=== PATIENT | female | born 1960 | race Hispanic/Latino ===

== ENCOUNTER 2018-01-31 10:42 | Day surgery (SDC) | payer MEDICAID ==
[2018-01-31] MEDS ORDERED: NACL BACTERIOSTATIC INFILTRATI ONE (11:49)
[2018-01-31] MEDS ORDERED: ZOFRAN ONE (11:50)
[2018-01-31] MEDS ORDERED: SUBLIMAZE ONE (12:17)
--- NOTE | 2018-01-31 12:26 | Anesthesia Consultation ---
Anesthesia Consult and Med Hx Date of service: 01/31/18 - Airway Anesthetic Teeth Evaluation: Edentulous ROM Head & Neck: Adequate Mental/Hyoid Distance: Adequate Mallampati Class: Class II Intubation Access Assessment: Probably Good - Pulmonary Exam CTA: Yes - Cardiac Exam Cardiac Exam: RRR - Pre-Operative Health Status ASA Pre-Surgery Classification: ASA3 Proposed Anesthetic Plan: General - Pulmonary Hx Smoking: Yes (STOPPED 2003 , 1 PPD X 30 YRS) COPD: Yes (RARE INHALER USE. (Combivent used every morning)) Hx Sleep Apnea: Yes (DX SLEEP APNEA , NO CPAP USE.) - Cardiovascular System Hx Hypertension: No Hx Heart Murmur: Yes (MVP) - Central Nervous System Hx Neuromuscular Disorder: Yes (rheumatoid arthritis) Hx Back Pain: Yes (BACK AND NECK PAIN) - Gastrointestinal Hx Gastroesophageal Reflux Disease: No (IBS) - Endocrine Hx Renal Disease: No (interstitial cystitis) - Hematic Hx Anemia: Yes (NOT RECENT) - Other Systems Hx Cancer: Yes (Hx of cervical cancer in past (2003))
--- NOTE | 2018-01-31 12:27 | Anesthesia Day of Surgery ---
Anesthesia Day of Surgery - Day of Surgery Patient Examined: Yes Patient H&P Reviewed: Yes Patient is NPO: Yes
[2018-01-31] MEDS ORDERED: ZOFRAN IV NR (12:30)
[2018-01-31] MEDS ORDERED: NACL 0.9% 1000 ML 1,000 ML IV SCH (12:30)
[2018-01-31] MEDS ORDERED: VERSED IV NR (12:32)
[2018-01-31] MEDS ORDERED: XYLOCAINE MPF 2% ONE (12:35)
[2018-01-31] MEDS ORDERED: DIPRIVAN 10 MG/ML IV ONE (12:35)
[2018-01-31] MEDS ORDERED: WATER FOR IRRIG STERILE IR ONE (15:00)
[2018-01-31] MEDS ORDERED: ANCEF/STERILE WATER 2 GM/20 ML IV NR (15:00)
--- NOTE | 2018-01-31 15:39 | Short Stay Summary ---
Short Stay Documentation Date of service: 01/31/18 - History H&P: obtained from office - Allergies and Medications Current Medications: Allergies codeine Allergy (Verified 01/23/18 16:24) Vomiting / RASH diazepam [From Valium] Allergy (Verified 01/23/18 16:25) LOW BP iodine Allergy (Verified 01/23/18 16:25) Hives PT STATES CAN TAKE IN SMALL AMOUNTS , BUT REPEATED DOSES CAUSES HIVES. morphine Allergy (Verified 01/23/18 16:24) Hives Home Medications Medication Instructions Recorded Confirmed Last Taken Type Abatacept [Orencia] 50 mg SQ QWEEK 01/23/18 01/31/18 1 Month Ago History ~12/31/17 AtorvaSTATin [Lipitor] 20 mg PO QHS 01/23/18 01/23/18 01/30/18 History Cholecalciferol (Vitamin D3) 50,000 unit PO QWEEK 01/23/18 01/31/18 1 Week Ago History [Vitamin D3] ~01/24/18 HYDROcodone/APAP 5-325 [Allison 1 each PO Q6HR PRN 01/23/18 01/23/18 01/30/18 History 5/325] Ipratropium/Albuter (Nf) 2 puff IH PRN PRN 01/23/18 01/23/18 01/30/18 History [Combivent (Nf)] Active Medications Cefazolin Sodium (Ancef/Sterile Water 2 Gm/20 Ml) 2 gm IV PREOP NR Stop: 01/31/18 23:59 Sodium Chloride (Nacl 0.9% 1000 Ml) 1,000 mls @ 100 mls/hr IV DIRECT YURI Stop: 01/31/18 23:59 Last Admin: 01/31/18 12:00 Dose: 100 mls/hr Midazolam HCl (Versed) 1 mg IV PREOP NR Stop: 01/31/18 23:00 Last Admin: 01/31/18 12:40 Dose: 1 mg - Brief post op/procedure progress note Date of procedure: 01/31/18 Pre-op diagnosis: right uret stenosis / hydroureter Post-op diagnosis: same Procedure: cysto, urs, rpg right stent change 6x24 Anesthesia: GETA Findings: right distal ureter mild narrow, no tumor Surgeon: UNRULY GONZALEZ Estimated blood loss: minimal Pathology: none Condition: stable - Hospital course Hospital course: or pacu home - Disposition Condition at discharge: Good Disposition: DC-01 TO HOME OR SELFCARE Short Stay Discharge Plan Activity: advance as tolerated Follow up with: UNRULY GONZALEZ MD [Staff Physician] - 7 Days
[2018-01-31 16:18] VITALS: BP 117/52
[2018-01-31] MEDS ORDERED: NORCO 7.5/325 PO ONE (17:23)
--- NOTE | 2018-02-01 08:07 | Fluoroscopy Report ---
FLUOROSCOPY RETROGRADE UROGRAPHY: HISTORY: Hydronephrosis. FINDINGS: Fluoroscopy was provided by radiology during retrograde urography by the urologist. 9 fluoroscopic images were captured. Lab Support Service Tech film demonstrates a right ureteral stent which appears in good position. Right ureteroscopy was performed per the operative note. No filling defects or stones were visible. The right ureteral stent was replaced which adequately drains the right renal collecting system on the final image. The left pyelogram was not performed IMPRESSION: Right ureteral stent replacement as described.
--- NOTE | 2018-03-15 21:24 | Operative Report ---
PREOPERATIVE DIAGNOSES: Right ureteral stenosis and hydroureter. POSTOPERATIVE DIAGNOSES: Right ureteral stenosis and hydroureter. PROCEDURE: Cystoscopy, ureteroscopy, RPG, right stent change. FINDINGS: Right distal ureter mildly narrow. No tumor. SURGEON: Pete Penaloza M.D. ESTIMATED BLOOD LOSS: Minimal. PATHOLOGY: None. CONDITION: Stable. CLINICAL INDICATIONS: The patient has a history of an abnormality on her CT for past evaluation, had been scheduled for a scope, unable to pass scope due to stricture, narrowed area, so a stent had been placed. She is here for staged look, antibiotics, SCDs. DESCRIPTION OF PROCEDURE: The patient transferred to the OR suite in supine position, anesthesia, dorsal lithotomy position, prepped and draped in standard fashion. A 20-Danish scope passed, the right distal J visualized. Wire passed adjacent to this to the right renal pelvis, stent grasped, pulled out intact. Rigid ureteroscope was then passed. We were able to easily pass through this mildly narrow. We were able to pass beyond the stricture or apparently narrowed area. On the CT scan and previous studies, there was no visualized erythema, no papillary areas. No tumors and nothing suspicious. The cystoscope was passed up to the proximal length and up to the pelvis with no abnormality. The scope was slowly withdrawn. Wire backloaded on the cystoscope. A 6-Danish double-J stent was placed after the wire was removed, good proximal and distal J. the scope was withdrawn. The patient awakened and transferred to PACU. This is staged for future stent removal. JOB# [id number] ATS/NTS
== END 2018-01-31 16:45 | disposition home or self-care (01) ==
LOC: OR 10:42
PROVIDERS: ATTEND Urology
DX: N13.1 Hydronephrosis with ureteral stricture, not elsewhere classified (principal); J44.9 Chronic obstructive pulmonary disease, unspecified; I34.1 Nonrheumatic mitral (valve) prolapse; K58.9 Irritable bowel syndrome, unspecified; M06.9 Rheumatoid arthritis, unspecified; G47.30 Sleep apnea, unspecified; Z85.41 Personal history of malignant neoplasm of cervix uteri; Z87.891 Personal history of nicotine dependence; Z88.5 Allergy status to narcotic agent; Z88.8 Allergy status to other drugs, medicaments and biological substances; Z91.041 Radiographic dye allergy status
CPT/HCPCS: 52332; 74420; A4217; C1758; C1769; C2617; J0690; J2250; J2405; J2704; J3010; J7030; Q9967